=== PATIENT | male | born 1985 | race Two or more races ===

== ENCOUNTER 2022-10-14 03:40 | Emergency (ER) | payer SELFPAY ==
[~2022-10-14] VITALS: Ht 175.3 cm; Wt 109.1 kg
[2022-10-14] MEDS ORDERED: DOXYCYCLINE HYCLATE 100 MG TABLET PO ONE (04:45)
[2022-10-14] MEDS ORDERED: KETOROLAC TROMETHAMINE 30 MG/ML VIAL IM ONE (04:45)
[2022-10-14] MEDS ORDERED: DOXY-171 PO (04:51)
[2022-10-14] MEDS ORDERED: HYDROCODONE/ACETAMINOPHEN 5-325 MG TABLET PO ONE (05:00)
[2022-10-14 05:05] VITALS: BP 145/80
== END 2022-10-14 05:06 | disposition home or self-care (01) ==
LOC: EMS 03:42 → EDBD 03:42 → EMS 05:06
DX: K08.89 Other specified disorders of teeth and supporting structures (principal); K02.9 Dental caries, unspecified
CPT/HCPCS: 99283; 96372; J1885